=== PATIENT | female | born 1990 | race American Indian/Alaskan Native ===

== ENCOUNTER 2016-09-21 16:46 | Outpatient (CLI) | payer BC, MEDICAID ==
[2016-09-21] MEDS ORDERED: LACTATED RINGERS 500 ML IV ONE (18:00)
[2016-09-21 18:01] LABS: Hematocrit 31.9 % (30.3-42.9); Hemoglobin 10.2 gm/dl (10.1-14.3); Mean Corpuscular HGB Conc 32 % (30-34); Mean Corpuscular Hemoglobin 22 pg (28-32); Mean Corpuscular Volume 69 fl (79-97); Platelet Count 268 K/mm3 (140-440); Red Cell Distribution Width 19.3 % (13.2-15.2); White Blood Count 13.8 K/mm3 (4.5-11.0)
[2016-09-21 18:05] LABS: Bacteria,Urine 1+ /HPF (Negative); Bilirubin,Urine NEG (Negative); Blood,Urine MOD (Negative); Ketones,Urine NEG (Negative); Leukocyte Esterase,Urine LG (Negative); Mucus,Urine FEW /HPF; Nitrite,Urine NEG (Negative); Protein,Urine <15 mg/dL mg/dL (Negative); Urobilinogen,Urine < 2.0 mg/dL (<2.0)
[2016-09-21 18:08] LABS: Alanine Aminotransferase 11 units/L (7-56); Lactate Dehydrogenase 204 units/L (91-180); Uric Acid 4.3 mg/dL (3.5-7.6)
--- NOTE | 2016-09-22 08:16 | Ultrasound Report ---
BIOPHYSICAL PROFILE: INDICATION: well being, PIH evaluation. COMPARISON: None similar. TECHNIQUE: Transabdominal ultrasound with Doppler interrogation. 2 - breathing movements 2 - movements 2 - posture and tone 2 - Qualitative amniotic fluid volume 8 - TOTAL SCORE OF POSSIBLE 8 Heart Rate (bpm) 142
--- NOTE | 2016-09-22 08:29 | Ultrasound Report ---
OB ULTRASOUND GREATER THAN 14 WEEKS INDICATION: well being. PIH evaluation, NATHALIA and [facility]FW. COMPARISON: None similar at this institution. TECHNIQUE: Transabdominal grayscale ultrasound with Doppler interrogation. Gestation: Godfrey Position: Cephalic Amniotic Fluid: WNL (7-24 cm) NATHALIA = 19 cm Placenta: Anterior Placental Grade: I Heart Rate: 142 BPM BPD: 9 cm = 36 w 2 d HC: 32.3 cm = 36 w 4 d AC: 30.4 cm = 34 w 2 d FL: 7.1 cm = 36 w 4 d HC/AC Ratio: 1.06 Cephalic Index: 79.4 Estimated Weight: 2661 grams Clinical age = 36 w 4 d EDC: 10/15/2016 US Gest. Age = 36 w 0 d EDC: 10/19/2016 CONCLUSION: Single, viable intrauterine gestation with ultrasound estimated age of 36 weeks and zero days and EDC of 10/19/2016, currently in cephalic lie with details, as above. Thank you for the opportunity to participate in this patient's care.
[2016-09-25 07:09] VITALS: BP 133/76
== END 2016-09-21 19:32 | disposition home or self-care (01) ==
LOC: TRG 16:46
PROVIDERS: ATTEND Obstetrics & Gynecology
DX: O47.03 False labor before 37 completed weeks of gestation, third trimester (principal); Z3A.36 36 weeks gestation of pregnancy
CPT/HCPCS: 36415; 59025; 76816; 76819; 81001; 82565; 83615; 84450; 84460; 84550; 85027